=== PATIENT | female | born 1940 | race Caucasian/White ===

== ENCOUNTER 2020-09-01 16:00 | Emergency (ER) | payer OTHER, SELFPAY ==
[2020-09-01] VITALS (37 sets, daily range): BP systolic 112–181; BP diastolic 58–110; PULSE 60–144; RESP 11–27; TEMP 36.7; O2SAT 92–98; BMI 21.6
--- NOTE | 2020-09-01 16:13 | DI.RAD.S_ITS ---
PROCEDURE: XR CHEST 1V INDICATIONS: Chest pain TECHNIQUE: One view of the chest was acquired. COMPARISON: None. FINDINGS: Surgical changes and devices: None. Lungs and pleura: Patchy airspace opacity in the lung apices, right greater than left, presumably representing scarring although this is not definitive. No pleural effusions or pneumothorax. Mediastinum: Mediastinal contours appear normal. Heart size is normal. Bones and chest wall: No suspicious bony lesions. Overlying soft tissues appear unremarkable. IMPRESSION: Patchy airspace opacities in the lung apices presumably represent scarring, although infectious airspace disease or neoplasm could appear similar. Correlation with any prior outside studies would be helpful. Correlate with CBC and physical exam. Chest CT could be considered for further evaluation if clinically warranted. Dictated by: Jeramie Shook M.D. on 09/01/2020 at 16:39 Approved by: Jeramie Shook M.D. on 09/01/2020 at 16:40
[2020-09-01] MEDS: dilTIAZem 5 MG/ML SDV 10 MG IV ×2 (16:31→16:43)
[2020-09-01] MEDS: SODIUM CHLORIDE 0.9% 1,000 ML 125 ML IV (16:31)
[2020-09-01 16:40] LABS: Add Manual Diff / Slide Review NO; Basophils Absolute Auto 100 /uL (0-100); Basophils Percent Auto 1.1 % (0-2); Eosinophils Absolute Auto 200 /uL (0-450); Eosinophils Percent Auto 1.8 % (2-4); Hematocrit 46.9 % (36-46); Hemoglobin 15.6 g/dL (12.0-16.0); Lymphocytes Absolute Auto 2000 /uL (1100-4500); Lymphocytes Percent Auto 20.3 % (25-40); Mean Corpuscular HGB Conc 33.3 % (30-36); Mean Corpuscular Hemoglobin 31.8 PG (26-34); Mean Corpuscular Volume 95.3 fL (80-100); Monocytes Absolute Auto 1000 /uL (0-900); Monocytes Percent Auto 10.4 % (3-14); Neutrophils Absolute Auto 6500 /uL (1500-7000); Neutrophils Percent Auto 66.4 % (50-75); Platelet Count 303 X10^3/uL (150-400); Red Blood Cell Count 4.92 X10^6/uL (4.0-5.2); Red Cell Distribution Width 13.9 % (11.6-14.8); White Blood Cell Count 9.9 X10^3/uL (4.5-11.0)
--- NOTE | 2020-09-01 16:41 | ED_ITS ---
HPI - Arrhythmia/Palpitations General Chief Complaint: Arrhythmia/Palpitations Stated Complaint: Fast HR Time Seen by Provider: 09/01/20 16:33 Source: patient Mode of arrival: Family Vehicle Limitations: no limitations History of Present Illness HPI narrative: This is a pleasant 80-year-old female comes to the emergency department with complaint of fast heart rate for the last several days. Patient states she has a history of atrial fibrillation also a secondary rhythm change was noted on a prior monitor in March of 2019. Patient is unsure what it is. She states she felt a little lightheaded today so she came here to the emergency department. She denies any chest pressure or shortness of breath. She denies any syncope. She denies any nausea or vomiting. No diarrhea constipation. No urinary symptoms. No new swelling in her extremities. Patient lives in [place] and is currently visiting [address] [facility]. Patient does have a history of atrial fibrillation, she states she is on diltiazem at nightly and additional blood pressure medication. Patient is not anticoagulated she sometimes takes aspirin. Patient has seen Dr. Zhang for Cardiology through [facility] in [place]. Patient states she did have an ablation she thinks approximately 20 years ago. She had no cardiac stents placed. She denies any other major surgical history. She has noted she has had a mild cough since this started. She should her only other medical history is hypertension. Patient denies any allergies to medication. To med no tobacco, 1 glass of wine nightly, no illicit. Related Data Home Medications Medication Instructions Recorded Confirmed alendronate 70 mg tablet 70 mg PO WEEKLY 09/01/20 09/01/20 calcium carb 600 mg(1,500 mg)-vit 1 tab PO BEDTIME 09/01/20 09/01/20 D3 400 unit-minerals chewable tablet diltiazem HCl 120 mg 120 mg PO BEDTIME 09/01/20 09/01/20 capsule,extended release 24 hr, controlled losartan 50 mg tablet 25 mg PO BEDTIME 09/01/20 09/01/20 Allergies Allergy/AdvReac Type Severity Reaction Status Date / Time No Known Drug Allergies Allergy Verified 09/01/20 16:17 Review of Systems Review of Systems ROS Unobtainable: All systems reviewed & are unremarkable except as noted in HPI and below Patient History Medical History (Updated 09/01/20 @ 20:53 by Fernanda Davis RN) Arthritis of carpometacarpal (CMC) joint of left thumb Cataract, senile CKD (chronic kidney disease) stage 3, GFR 30-59 ml/min Esotropia Hyperlipidemia Hypertension Mild exercise-induced asthma Osteoporosis PVC (premature ventricular contraction) Squamous cell cancer of scalp and skin of neck SVT (supraventricular tachycardia) Vertigo Social History Smoking Status: Never smoker Smoking Status: Never smoker alcohol intake frequency: 0-2 drinks per day Alcohol type: wine Substance Use Type: does not use Exam Narrative Exam Narrative: GENERAL: Alert and oriented x three, female in mild distress. HEENT: Head normocephalic, atraumatic, EOMI, pupils reactive, face symmetric, moist mucous membranes NECK: Supple, full range of motion CARDIOVASCULAR: Tachycardic new mildly irregularly irregular rate and rhythm without murmurs, rubs or gallops. No JVD. No swelling bilateral lower extremities. RESPIRATORY: Breath sounds equal bilaterally, no wheezes rales or rhonchi. ABDOMEN: Soft, nontender. Normoactive bowel sounds all 4 quadrants. No guarding or rebound, rigidity, no mass : No CVA tenderness EXTREMITIES: Normal range of motion, no clubbing or edema. Neurovascularly intact. 2+ pulses bilateral lower extremities NEUROLOGICAL: Cranial nerves II through XII grossly intact. Moving all extremit ies SKIN: Warm, dry, no petechiae, no rashes or lesions. Initial Vital Signs Initial Vital Signs: Vital Signs Temperature 98.1 F 09/01/20 16:13 Pulse Rate 144 H 09/01/20 16:13 Respiratory Rate 18 09/01/20 16:13 Blood Pressure 181/110 H 09/01/20 16:13 Pulse Oximetry 98 09/01/20 16:13 Course Orders Ordered: ED Orders 09/01/20 16:13 XR chest 1V Stat EKG-12 Lead Stat 09/01/20 16:31 Complete Blood Count AUTO DIFF Stat Comprehensive Metabolic Panel Stat Lipase Stat MAG [Magnesium] Stat NT-proBNP (BNP-Adult 18+) Stat TSH w/ Reflex to FT4 Stat Troponin & CK Cardiac Panel Stat 09/01/20 17:00 COVID19 - ADMIT (CREDIT REFERENCE CLERK swab/PCR) Stat 09/01/20 19:17 Troponin I Stat 09/01/20 19:35 EKG-12 Lead Stat 09/01/20 23:45 PTT [Partial Thromboplastin Time] Stat Sodium Chloride (Normal Saline 0.9%) 1,000 mls @ 125 mls/hr IV BOLUS ONE Stop: 09/02/20 00:23 Last Admin: 09/01/20 16:31 Dose: 125 mls/hr Documented by: SILVIA Diltiazem HCl 125 mg/ Sodium (Chloride) 125 mls @ 5 mls/hr IV TITRATE OLINDA; Protocol Last Titration: 09/01/20 18:57 Dose: 15 mg/hr, 15 mls/hr Documented by: Titration: 09/01/20 17:45 Dose: 10 mg/hr, 10 mls/hr Documented by: Admin: 09/01/20 17:28 Dose: 5 mg/hr, 5 mls/hr Documented by: SILVIA Heparin Sodium/Dextrose (Heparin Drip) 25,000 unit in 500 mls @ 14.152 mls/hr IV CONT OLINDA; Protocol Last Admin: 09/01/20 17:49 Dose: 12 units/kg/hr, 14.152 mls/hr Documented by: SILVIA Discontinued Medications Adenosine (Adenosine 6 Mg/2 Ml Vial) 6 mg IV NOW ONE Stop: 09/01/20 16:57 Last Admin: 09/01/20 17:09 Dose: 6 mg Documented by: SILVIA Aspirin (Aspirin Ec 81 Mg Tablet) 324 mg PO NOW ONE Stop: 09/01/20 16:36 Last Admin: 09/01/20 16:48 Dose: 324 mg Documented by: SILVIA Diltiazem HCl (Diltiazem 5 Mg/Ml Sdv) 10 mg IV NOW ONE Stop: 09/01/20 16:25 Last Admin: 09/01/20 16:31 Dose: 10 mg Documented by: SILVIA Diltiazem HCl (Diltiazem 5 Mg/Ml Sdv) 10 mg IV NOW ONE Stop: 09/01/20 16:41 Last Admin: 09/01/20 16:43 Dose: 10 mg Documented by: SILVIA Furosemide (Furosemide 40 Mg/4 Ml Vial) 40 mg IV NOW ONE Stop: 09/01/20 18:41 Last Admin: 09/01/20 20:03 Dose: 40 mg Documented by: MELI Heparin Sodium (Porcine) (Heparin 5,000 Unit/Ml Vial) 4,000 unit IV NOW ONE Stop: 09/01/20 17:35 Last Admin: 09/01/20 17:49 Dose: 4,000 unit Documented by: SILVIA Metoprolol Tartrate (Metoprolol Tartrate 5 Mg/5 Ml Inj) 5 mg IV Q5M [facility] Stop: 09/01/20 18:41 Last Admin: 09/01/20 19:17 Dose: 5 mg Documented by: Admin: 09/01/20 18:43 Dose: 5 mg Documented by: SILVIA Metoprolol Tartrate (Metoprolol Ir 25 Mg Tablet) 50 mg PO NOW ONE Stop: 09/01/20 20:41 Consultations Consultation #1: Dr. Rutledge with Patient's Cardiology team. Discussed patient does have a history of as a for trough ablation but had an event monitor in March of 2019 which did have 19 episodes of SVT. She did not have any other rhythm changes. She did have an echo in 2018 with normal LVEF. Negative stress echo in 2017. He did change her medications in April 2019 her last visit for low blood pressures. PatientHad been started Cardizem did not have any labs back at this point. Discussed would try adenosine with her history of SVT. We consult to Dr. Rutledge after SVT shows atrial flutter. She recommend returning Cardizem, can give metoprolol 5 mg IV x3 if systolic heart rate continues to be above 110. patient's troponin is positive today. We do not have Cardiology. They are affiliated with [facility], [facility] and [facility]. Consultation #2: Dr. Oneill hospitalist at [facility] accepts for transfer. Patient's heart rate has improved to 60, she still in atrial flutter. She is on diltiazem, heparin drip and has had received 3 doses of metoprolol IV, aspirin, 40 mg of Lasix. And also received adenosine 6 mg early in her stay which revealed atrial flutter but did not improve patient's rate ultimately. Vital Signs Vital signs: Vital Signs - 8 hr 09/01/20 16:13 09/01/20 16:27 09/01/20 16:28 Temperature 98.1 F Pulse Rate 144 H 135 H Respiratory Rate 18 21 Blood Pressure 181/110 H 143/103 H Pulse Oximetry 98 97 09/01/20 16:30 09/01/20 16:31 09/01/20 16:38 Temperature Pulse Rate 135 H 138 H 126 H Respiratory Rate 16 17 Blood Pressure 143/103 H 136/96 H Pulse Oximetry 97 96 09/01/20 16:43 09/01/20 16:45 09/01/20 17:00 Temperature Pulse Rate 126 H 126 H 125 H Respiratory Rate 18 19 Blood Pressure 136/96 H 135/95 H 132/90 Pulse Oximetry 97 97 09/01/20 17:11 09/01/20 17:15 09/01/20 17:28 Temperature Pulse Rate 125 H 126 H 126 H Respiratory Rate 11 L 21 Blood Pressure 132/79 146/94 H 146/94 H Pulse Oximetry 94 95 09/01/20 17:30 09/01/20 17:45 09/01/20 18:00 Temperature Pulse Rate 126 H 126 H 126 H Respiratory Rate 25 H 15 17 Blood Pressure 140/84 Pulse Oximetry 92 98 98 09/01/20 18:02 09/01/20 18:15 09/01/20 18:30 Temperature Pulse Rate 126 H 126 H 126 H Respiratory Rate 21 16 16 Blood Pressure 141/85 H 146/92 H 145/81 H Pulse Oximetry 98 09/01/20 18:45 09/01/20 19:00 09/01/20 19:15 Temperature Pulse Rate 126 H 120 H 113 H Respiratory Rate 15 18 27 H Blood Pressure 138/81 126/83 114/78 Pulse Oximetry 09/01/20 19:33 09/01/20 19:39 09/01/20 19:45 Temperature Pulse Rate 80 60 60 Respiratory Rate 24 22 15 Blood Pressure 126/72 133/68 Pulse Oximetry 97 96 96 09/01/20 20:00 09/01/20 20:16 09/01/20 20:30 Temperature Pulse Rate 60 60 60 Respiratory Rate 17 17 15 Blood Pressure 120/64 119/67 119/69 Pulse Oximetry 96 96 96 MDM - Arrhythmia/Palpitations Lab Data Result diagrams: 09/01/20 16:31 09/01/20 16:31 Labs: Lab Results 09/01/20 09/01/20 09/01/20 Range/Units 16:31 16:31 16:31 WBC 9.9 (4.5-11.0) X10^3/uL RBC 4.92 (4.0-5.2) X10^6/uL Hgb 15.6 (12.0-16.0) g/dL Hct 46.9 H (36-46) % MCV 95.3 (80-100) fL MCH 31.8 (26-34) PG MCHC 33.3 (30-36) % RDW 13.9 (11.6-14.8) % Plt Count 303 (150-400) X10^3/uL Neut % (Auto) 66.4 (50-75) % Lymph % (Auto) 20.3 L (25-40) % [place] % (Auto) 10.4 (3-14) % Eos % (Auto) 1.8 L (2-4) % Baso % (Auto) 1.1 (0-2) % Neut # (Auto) 6500 (5046-0952) /uL Lymph # (Auto) 2000 (3898-4218) /uL [place] # (Auto) 1000 H (0-900) /uL Eos # (Auto) 200 (0-450) /uL Baso # (Auto) 100 (0-100) /uL Sodium 136 L (137-145) mmol/L Potassium 4.2 (3.4-5.1) mmol/L Chloride 102 (98-107) mmol/L Carbon Dioxide 24 (22-32) mmol/L BUN 18 H (7-17) mg/dL Creatinine 1.03 (0.52-1.04) mg/dL Estimated GFR 51.3 L (>60) mL/min BUN/Creatinine Ratio 17.5 (6-22) Glucose 101 (80-110) mg/dL Calcium 9.6 (8.4-10.2) mg/dL Magnesium 2.2 (1.6-2.3) mg/dL Total Bilirubin 0.6 (0.2-1.3) mg/dL AST 56 H (14-36) IU/L ALT 21 (<35) IU/L Alkaline Phosphatase 82 (38-126) U/L Total Creatine Kinase 222 H (30-135) U/L CK-MB (CK-2) 11.00 H (<2.37) ng/mL CK-MB (CK-2) Rel Index 5.0 (1.5-5.0) % Troponin I 1.880 H* (0.01-0.034) ng/mL NT-Pro-B Natriuret Pep (<450) pg/mL Total Protein 8.7 H (6.3-8.2) g/dL Albumin 4.7 (3.5-5.0) g/dL Globulin 4.0 (1.7-4.1) g/dL Albumin/Globulin Ratio 1.2 (1.0-2.8) Lipase 120 (23-300) U/L TSH (0.47-4.68) uIU/mL SARS-CoV-2 (PCR) (Negative) 09/01/20 09/01/20 09/01/20 Range/Units 16:31 16:31 17:00 WBC (4.5-11.0) X10^3/uL RBC (4.0-5.2) X10^6/uL Hgb (12.0-16.0) g/dL Hct (36-46) % MCV (80-100) fL MCH (26-34) PG MCHC (30-36) % RDW (11.6-14.8) % Plt Count (150-400) X10^3/uL Neut % (Auto) (50-75) % Lymph % (Auto) (25-40) % [place] % (Auto) (3-14) % Eos % (Auto) (2-4) % Baso % (Auto) (0-2) % Neut # (Auto) (3391-3534) /uL Lymph # (Auto) (6235-7945) /uL [place] # (Auto) (0-900) /uL Eos # (Auto) (0-450) /uL Baso # (Auto) (0-100) /uL Sodium (137-145) mmol/L Potassium (3.4-5.1) mmol/L Chloride (98-107) mmol/L Carbon Dioxide (22-32) mmol/L BUN (7-17) mg/dL Creatinine (0.52-1.04) mg/dL Estimated GFR (>60) mL/min BUN/Creatinine Ratio (6-22) Glucose (80-110) mg/dL Calcium (8.4-10.2) mg/dL Magnesium (1.6-2.3) mg/dL Total Bilirubin (0.2-1.3) mg/dL AST (14-36) IU/L ALT (<35) IU/L Alkaline Phosphatase (38-126) U/L Total Creatine Kinase (30-135) U/L CK-MB (CK-2) (<2.37) ng/mL CK-MB (CK-2) Rel Index (1.5-5.0) % Troponin I (0.01-0.034) ng/mL NT-Pro-B Natriuret Pep 4160 H (<450) pg/mL Total Protein (6.3-8.2) g/dL Albumin (3.5-5.0) g/dL Globulin (1.7-4.1) g/dL Albumin/Globulin Ratio (1.0-2.8) Lipase (23-300) U/L TSH 1.60 (0.47-4.68) uIU/mL SARS-CoV-2 (PCR) Negative (Negative) 09/01/20 Range/Units 19:17 WBC (4.5-11.0) X10^3/uL RBC (4.0-5.2) X10^6/uL Hgb (12.0-16.0) g/dL Hct (36-46) % MCV (80-100) fL MCH (26-34) PG MCHC (30-36) % RDW (11.6-14.8) % Plt Count (150-400) X10^3/uL Neut % (Auto) (50-75) % Lymph % (Auto) (25-40) % [place] % (Auto) (3-14) % Eos % (Auto) (2-4) % Baso % (Auto) (0-2) % Neut # (Auto) (6716-7351) /uL Lymph # (Auto) (7509-0346) /uL [place] # (Auto) (0-900) /uL Eos # (Auto) (0-450) /uL Baso # (Auto) (0-100) /uL Sodium (137-145) mmol/L Potassium (3.4-5.1) mmol/L Chloride (98-107) mmol/L Carbon Dioxide (22-32) mmol/L BUN (7-17) mg/dL Creatinine (0.52-1.04) mg/dL Estimated GFR (>60) mL/min BUN/Creatinine Ratio (6-22) Glucose (80-110) mg/dL Calcium (8.4-10.2) mg/dL Magnesium (1.6-2.3) mg/dL Total Bilirubin (0.2-1.3) mg/dL AST (14-36) IU/L ALT (<35) IU/L Alkaline Phosphatase (38-126) U/L Total Creatine Kinase (30-135) U/L CK-MB (CK-2) (<2.37) ng/mL CK-MB (CK-2) Rel Index (1.5-5.0) % Troponin I 1.660 H* (0.01-0.034) ng/mL NT-Pro-B Natriuret Pep (<450) pg/mL Total Protein (6.3-8.2) g/dL Albumin (3.5-5.0) g/dL Globulin (1.7-4.1) g/dL Albumin/Globulin Ratio (1.0-2.8) Lipase (23-300) U/L TSH (0.47-4.68) uIU/mL SARS-CoV-2 (PCR) (Negative) Imaging Data Chest x-ray: Radiologist's Impresson: [address] [id number] ReportSigned Patient: Robert Hendrickson#: [id number]: 9Acct:[id number]/Sex: 80 / FDate of Service: 09/01/20Loc: EDAccession Number: [id number] Procedure: XR chest 1V Ordering Provider: Mariajose Hu D.O. PROCEDURE: XR CHEST 1V INDICATIONS: Chest pain TECHNIQUE: One view of the chest was acquired. COMPARISON: None. FINDINGS: Surgical changes and devices: None. Lungs and pleura: Patchy airspace opacity in the lung apices, right greater than left, presumably representing scarring although this is not definitive. No pleural effusions or pneumothorax. Mediastinum: Mediastinal contours appear normal. Heart size is normal. Bones and chest wall: No suspicious bony lesions. Overlying soft tissues appear unremarkable. IMPRESSION: Patchy airspace opacities in the lung apices presumably represent scarring, although infectious airspace disease or neoplasm could appear similar. Correlation with any prior outside studies would be helpful. Correlate with CBC and physical exam. Chest CT could be considered for further evaluation if clinically warranted. Dictated by: Jeramie Shook M.D. on 09/01/2020 at 16:39 Approved by: Jeramie Shook M.D. on 09/01/2020 at 16:40 ECG Data Interpretation: Patient has a heart rate of 142 irregularly irregular rhythm that appears consistent with AFib. QRS is 62 QTC of 338. Patient does have some ST depression in lateral leads. Possible elevation AVR, no other elevation of she did clearly. Patient does not have prior here for comparison. patient given adenosine which showed slowing and atrial flutter pattern centra lly returned to tachycardic rate. MDM Narrative Medical decision making narrative: This is an 80-year-old female comes in with complaint of several days of fast heart rate. Patient does have depression on her EKG. Patient does not having chest pain or pressure and I suspect she is having atrial rhythm with rapid ventricular response causing a troponin leak/ myocardial infarction. Patient's renal function appears stable, her like to lytes and hemoglobin do not show major abnormalities. BNP is elevated. Chest x-ray shows possible infiltrate but with more. Patient is not anticoagulated so would not emergently cardioverted and discussed with her Cardiology team who felt was appropriate to not cardiovert as well. She is currently on Cardizem with mild improvement in heart rate 120s but had not come below this level. They recommended adding metoprolol IV x3 to see if this was helpful. Patient was started on heparin drip. She has received aspirin. Lasix was given she does have an elevated BNP although she is not symptomatic. COVID swab was ordered as well. We do not have Cardiology present here at our facility so coordination of care for transfer. There is a significant bed shortage in the region currently, there is likelihood of bed availability after 11:00 p.m. johana at [facility]. We did contact [facility] for [facility] and the physician on gave permission for patient to be placed at any facility that is available. Also contacted the [facility] wide coordination number and they asked us to exhaust all possibilities before contacting. Patient signed out to Dr. Crandall while awaiting bed placement. Accepted at [facility] by Dr. Oneill hospitalist. Critical Care Time Critical Care Time Critical Care Time: Yes Total Critical Care Time: 135 Attestation: The high probability of a clinically significant, sudden or life threatening deterioration of the [cardiac] system(s) required my full and direct attention, intervention and personal management. The aggregate critical care time was [135] minutes. This time is in addition to time spent performing reported procedures but includes the following: [x] Data Review and interpretation [x] Patient assessment and monitoring of vital signs [x] Documentation [x] Medication orders and management Discharge Plan Departure Patient Disposition: [facility] Clinical Impression: Myocardial infarction, Atrial flutter with rapid ventricular response Prescriptions: No Action alendronate 70 mg tablet 70 mg PO WEEKLY RF: 0 diltiazem HCl 120 mg capsule,ext.rel 24h degradable 120 mg PO BEDTIME RF: 0 losartan 50 mg Tablet 25 mg PO BEDTIME RF: 0 calcium carbonate-vit D3-min 600 mg (1,500 mg)-400 unit Tablet,Chewable 1 tab PO BEDTIME RF: 0 Referrals: Zabrina Trivedi MD [Primary Care Provider] -
[2020-09-01] MEDS: ASPIRIN EC 81 MG TABLET 324 MG PO (16:48)
[2020-09-01 16:56] LABS: Alanine Aminotransferase 21 IU/L (<35); Albumin 4.7 g/dL (3.5-5.0); Albumin Globulin Ratio 1.2 (1.0-2.8); Alkaline Phosphatase 82 U/L (38-126); Aspartate Aminotransferase 56 IU/L (14-36); BUN Creatinine Ratio 17.5 (6-22); Bilirubin Total 0.6 mg/dL (0.2-1.3); Blood Urea Nitrogen 18 mg/dL (7-17); Calcium 9.6 mg/dL (8.4-10.2); Carbon Dioxide 24 mmol/L (22-32); Chloride 102 mmol/L (98-107); Creatine Kinase 222 U/L (30-135); Estimated Glomerular Filt Rate 51.3 mL/min (>60); Glucose 101 mg/dL (80-110); HEMOLYSIS < 15 (0-50); Lipase 120 U/L (23-300); Potassium 4.2 mmol/L (3.4-5.1); Sodium 136 mmol/L (137-145); Total Protein 8.7 g/dL (6.3-8.2)
[2020-09-01 16:57] LABS: Magnesium 2.2 mg/dL (1.6-2.3)
[2020-09-01] MEDS: ADENOSINE 6 MG/2 ML VIAL IV (17:09)
[2020-09-01] MEDS: dilTIAZem 125 MG in SODIUM CHLORIDE 0.9% 100 ML IV (17:28)
[2020-09-01] MEDS: HEPARIN 5,000 UNIT/ML VIAL 4000 UNIT IV (17:49)
[2020-09-01] MEDS: HEPARIN DRIP 25,000 UNIT/500 ML IV.SOLN 14.152 UNIT IV (17:49)
[2020-09-01 17:56] LABS: COVID19 - ADMIT (NP swab/PCR) Negative (Negative)
[2020-09-01 18:05] LABS: NT-proBNP (BNP-Adult 18+) 4160 pg/mL (<450)
[2020-09-01] MEDS: METOPROLOL TARTRATE 5 MG/5 ML INJ IV ×2 (18:43→19:17)
[2020-09-01] MEDS: FUROSEMIDE 40 MG/4 ML VIAL IV (20:03)
--- NOTE | 2020-09-01 21:19 | PC.NURSE ---
Pt states that she felt rapid heart beat x 2 days but no chest pain, diaphorisis. + shortness of breath upon exertion since yesterday and feels generally fatigued. [place]/warm/dry. Able to speak in full sentences.
--- NOTE | 2020-09-01 23:22 | PC.NURSE ---
gave report to ANNELISE Santos at [facility].
--- NOTE | 2020-09-01 23:30 | PC.NURSE ---
pt transferred to Transport crew, with NS, Dilt and Gennaro running
== END 2020-09-01 23:31 | disposition short-term general hospital (02) ==
PROVIDERS: Emergency Provider Emergency Medicine; PCP Internal Medicine
DX: I21.9 Acute myocardial infarction, unspecified (principal); I48.92 Unspecified atrial flutter; I48.0 Paroxysmal atrial fibrillation; Z20.822 Contact with and (suspected) exposure to COVID-19
CPT/HCPCS: 36415; 71045; 80053; 82550; 82553; 83690; 83735; 83880; 84443; 84484; 85025; 87635; 93005; 96361; 96365; 96368; 96375; 99285; 99291; 99292; C9803; J0153; J1644; J1940